=== PATIENT | female | born 2000 | race Caucasian/White ===

== ENCOUNTER 2018-06-06 09:54 | Outpatient (CLI) | payer BC, OTHER ==
--- NOTE | 2018-06-06 11:30 | MRI ---
MRI OF THE LEFT KNEE: DATE: 06/05/18. PROVIDED CLINICAL HISTORY: Left knee pain. FINDINGS: Intact fibers of the anterior cruciate ligament are not identified, compatible with disruption. The posterior cruciate ligament, medial collateral ligament, and lateral collateral ligamentous complex d emonstrate an intact MR appearance, as does the extensor mechanism. There is a complex nondisplaced peripheral longitudinal vertical tear involving the posterior horn of the medial meniscus. The lateral meniscus demonstrates no evidence for tear. There is contusion involving the lateral femoral condyle and the posteromedial and posterolateral tib ial plateaus. No focal articular cartilage defect is apparent. There is a mild knee joint effusion with evidence for ruptured Dean's cyst. There is partial thickn ess tearing of the medial head of gastrocnemius muscle near the proximal musculotendinous junction wi th a small intramuscular hematoma measuring about 8 mm. IMPRESSION: 1. Anterior cruciate ligament disruption. 2. Medial meniscal tear. 3. Contusions about the knee as described. 4. Partial tearing of the medial head of the gastrocnemius muscle with small intramuscular hematoma. 5. Mild knee joint effusion. POS: [facility]
== END 2018-06-06 09:55 | disposition home or self-care (01) ==
LOC: MRI 09:54
DX: M23.92 Unspecified internal derangement of left knee (principal); S83.242A Other tear of medial meniscus, current injury, left knee, initial encounter; S80.02XA Contusion of left knee, initial encounter; M25.462 Effusion, left knee

== ENCOUNTER 2018-06-14 06:52 | Observation (INO) | payer BC, OTHER ==
[2018-06-11 11:47] VITALS: BMI 20.3
[2018-06-14] MEDS ORDERED: CEFAZOLIN/Water 2 GM/20 ML SYRINGE ONE (07:44)
[2018-06-14] MEDS ORDERED: Fentanyl 100 MCG/2 ML VIAL ONE (08:32)
[2018-06-14] MEDS ORDERED: Midazolam HCl 2 mg/2 ml Vial ONE ×2 (08:32→10:36)
[2018-06-14] MEDS ORDERED: Promethazine HCl 25 MG/ML VIAL IM PRN ×2 (09:33→12:26)
[2018-06-14] MEDS ORDERED: Zolpidem Tartrate 5 MG TAB PO PRN (09:33)
[2018-06-14] MEDS ORDERED: Ropivacaine 0.2% 550 ML 550 ML NERVE BLCK SCH (09:33)
[2018-06-14] MEDS ORDERED: traMADol HCl 50 MG TAB PO PRN ×2 (09:33)
[2018-06-14] MEDS ORDERED: Ondansetron HCl/PF 4 MG/2 ML Vial IVP PRN ×3 (09:33→12:31)
[2018-06-14] MEDS ORDERED: Fentanyl 100 MCG/2 ML VIAL IV PRN (09:34)
[2018-06-14] MEDS ORDERED: HYDROcodone/Acetaminophen 7.5/325 mg Tablet PO PRN ×2 (09:35)
[2018-06-14] MEDS ORDERED: HYDROmorphone 0.5 MG/0.5 ML SYRINGE ONE (10:36)
[2018-06-14] MEDS ORDERED: Dexamethasone 20 MG/5 ML VIAL ONE ×2 (10:44→12:32)
[2018-06-14] MEDS ORDERED: Ondansetron HCl/PF 4 MG/2 ML Vial ONE ×2 (10:44→12:32)
[2018-06-14] MEDS ORDERED: PROPOFOL 20 ML ONE (10:44)
[2018-06-14] MEDS ORDERED: ePHEDrine/0.9% NaCl/PF SYRINGE 50 mg/10 ml ONE ×2 (11:13→12:32)
[2018-06-14] MEDS ORDERED: Ketorolac Tromethamine 30 MG/ML VIAL ONE ×2 (12:14→12:32)
[2018-06-14] MEDS ORDERED: Ropivacaine 0.5% HCl/PF (150 MG/30 ML VIAL) ONE (12:25)
[2018-06-14] MEDS ORDERED: Bupivacaine 0.25% HCL 30 ML VIAL ONE (12:25)
[2018-06-14] MEDS ORDERED: Promethazine HCl 25 MG/ML VIAL SLOW IVP PRN (12:26)
[2018-06-14] MEDS ORDERED: HYDROmorphone 2 MG/ML VIAL SLOW IVP PRN (12:26)
[2018-06-14] MEDS ORDERED: Milk Of Magnesia 30 ML UDCUP PO PRN (12:31)
[2018-06-14] MEDS ORDERED: diphenhydrAMINE 50 MG CAP PO PRN (12:31)
[2018-06-14] MEDS ORDERED: Morphine 4 MG/ML Carpuject SLOW IVP PRN (12:31)
[2018-06-14] MEDS ORDERED: Methocarbamol 500 MG TAB PO PRN (12:31)
[2018-06-14] MEDS ORDERED: Bisacodyl 10 MG SUPP PR PRN (12:31)
[2018-06-14] MEDS ORDERED: Acetaminophen 500 MG TAB PO PRN (12:31)
[2018-06-14] MEDS ORDERED: Lidocaine 1% PF 5 ML VIAL ONE (12:32)
[2018-06-14] MEDS ORDERED: Glycopyrrolate 0.2 MG/ML 5 ML SYRINGE ONE (12:32)
[2018-06-14] MEDS ORDERED: PROPOFOL 200 MG/20 ML VIAL ONE (12:32)
--- NOTE | 2018-06-14 13:12 | OP ---
DATE OF PROCEDURE: 06/14/2018 PREOPERATIVE DIAGNOSES: Left knee anterior cruciate ligament tear and medial meniscus tear. POSTOPERATIVE DIAGNOSES: 1. Left knee anterior cruciate ligament tear. 2. Stable tear posterior horn of the medial meniscus. SURGEON: Prieto Queen M.D. EVS MANAGER: Noe Guerrero PA-C. BLOOD LOSS: Minimal. COMPLICATIONS: None. DISPOSITION: She did have general anesthetic. She also had a preoperative block. CONDITION: She went to the recovery room in stable condition. IMPLANTS: A 7 x 25 metal interference screw on the femur and a bicortical screw with a smooth washer on the tibia. There were no complications. PROCEDURE PERFORMED: 1. Left knee exam under anesthesia. 2. Left knee arthroscopy with arthroscopically assisted ACL reconstruction using autologous patellar tendon graft. 3. Trephination medial meniscus tear. INDICATIONS: A 17-year-old female who injured her knee about 6 weeks ago. At this time, was found t o have a ligament tear and medial meniscus tear and at this time is presenting for reconstruction. DESCRIPTION OF PROCEDURE: After all appropriate consent forms were explained and signed, Zully take n to the operating room and at this time was given general anesthetic. Once anesthesia was appropria te, exam under anesthesia was undertaken of the left lower extremity showed to have a positive Lachma n exam, negative posterior drawer, stable to varus and valgus stress. Tourniquet was placed on the l eft thigh and leg was then placed in the arthroscopic leg cortes. The limb was then prepped and drap ed in the standard surgical fashion. The limb was exsanguinated and the tourniquet was taken to 300 mmHg. Midline incision was made with a 10 blade down through skin. Bovie was used to coagulate any brisk venous bleeding. New blade was used to take the paratenon off the underlying patellar tendon. At this time, central third patellar tendon graft was harvested with double 10 blade saw and osteoto me. Graft was taken to the back table and made so it was a size 10 and 10. At this time, we then staci gerard closed our graft site using multiple interrupted Vicryls. Inferolateral portal was then establ ished and the scope was placed into the knee joint. A needle localization technique was then used to make a medial working portal. Diagnostic arthroscopy was commenced in the notch. The ACL was found to be torn with a large ball of ACL tissue noted in the notch, the PCL was intact. At this time, th e patellofemoral joint was found to be in good condition. The medial compartment showed the femur an d tibia noted to be in good condition. There was a small tear of the posterior horn of the medial me niscus and probing this from superior and inferior surfaces. I could not pull this down from the fem ur, really was a significantly unstable and we felt at this time we will just treat this with some tr ephination. A couple of holes were placed with an 18 gauge needle through the meniscus and the capsu le. Once this was done, I turned my attention to the lateral compartment, lateral femur, tibia, and lateral meniscus were probed and found to be intact. At this time, we then turned our attention to t he notch. All the ACL tissue was removed. Notchplasty was performed using the cecilia and shaver in st andard fashion. [id number]-[id number] guide was then placed in the medial portal to place a pin up and out th e anterolateral thigh. A 10 mm reamer was used to ream our tunnel to a depth of 30. At this time, a ll loose bony cartilaginous debris was removed from the knee joint. We then took our tibial guide se t at 52-1/2 degrees and placed into the knee joint. We then reamed with a 10 mm reamer to ream our t ibial tunnel. All edges were smoothed off as well as using the cecilia to chamfer off our tunnels. Onc e this was done, all loose bony cartilaginous debris was removed one final time from the knee joint. We then went dry. We flexed the knee up one more time placing the pin up and out the anterolateral thigh using this to pull a passing suture into the knee joint. This was pulled down our tibial tunne l and we then used this to pull our graft into the knee joint. A 7 x 25 metal interference screw was then used to fixate our femoral side. We then drilled, tapped and placed a bicortical screw with a smooth washer using this as a post and tying our sutures around this and about 5 degrees of flexion a nd posterior drawer being applied. At this time, the knee was taken through full range of motion and under direct visualization, the graft was found to have no impingement in full extension or flexion. The scope was removed, the knee was drained and at this time, our patellar and tibial graft sites w ere bone grafted. We then ran a Vicryl to close our paratenon. We then used 2-0 Vicryl and a runnin g suture followed by SurgiSeal skin glue to close the skin. Once this had dried, the tourniquet was let down. Toes pinked up nicely. A bulky soft tissue dressing was applied to the left lower extremi ty. The patient at this time was then awakened. She was taken to recovery in stable condition. All counts were correct at the end of the case. She received preoperative IV antibiotics.
[2018-06-14] MEDS ORDERED: CEFAZOLIN/Water 2 GM/20 ML SYRINGE SLOW IVP SCH (16:00)
[2018-06-14] MEDS: Dextrose 5 %-0.45 % NaCl 1,000 ML IV SCH ×2 (16:02→21:50)
[2018-06-14] MEDS: Ketorolac Tromethamine 30 MG/ML VIAL IVP SCH ×2 (16:02→21:00)
[2018-06-14] MEDS: Famotidine 20 MG TAB PO SCH (20:25)
[2018-06-14] MEDS: CEFAZOLIN/Water 2 GM/20 ML SYRINGE SLOW IVP SCH (20:26)
[2018-06-15] MEDS: CEFAZOLIN/Water 2 GM/20 ML SYRINGE SLOW IVP SCH (05:00)
[2018-06-15] MEDS: Ketorolac Tromethamine 30 MG/ML VIAL IVP SCH (05:10)
[2018-06-15] MEDS: Dextrose 5 %-0.45 % NaCl 1,000 ML IV SCH (05:10)
[2018-06-15 07:45] VITALS: BP 119/68; TEMP 98
[2018-06-15] MEDS: Famotidine 20 MG TAB PO SCH (09:20)
== END 2018-06-15 11:10 | disposition home or self-care (01) ==
LOC: SDC 06:52 → SJJU 14:05
PROVIDERS: ADMIT Orthopaedic Surgery; ATTEND Orthopaedic Surgery
PROC: 0MRP47Z Replacement of Left Knee Bursa and Ligament with Autologous Tissue Substitute, Percutaneous Endoscopic Approach (ICD-10-PCS; principal; 2018-06-14)
DX: S83.512A Sprain of anterior cruciate ligament of left knee, initial encounter (principal); S83.242A Other tear of medial meniscus, current injury, left knee, initial encounter; X58.XXXA Exposure to other specified factors, initial encounter
CPT/HCPCS: 96361; 96374; 96375; 96376; A4216; A4306; C1713; G0378; G8978-GP-CJ; G8979-GP-CJ; G8980-GP-CJ; J1100; J1170; J1885; J2001; J2250; J2405; J2704; J2795; J3010; S0020